=== PATIENT | female | born 1970 | race Caucasian/White ===

== ENCOUNTER 2019-02-01 10:10 | Emergency (ER) | payer BC ==
[~2019-02-01] VITALS: Ht 154.9 cm; Wt 72.6 kg
[2019-02-01 10:35] VITALS: BP 137/83
[2019-02-01] MEDS ORDERED: ZYRTEC10 M5 PO (10:40)
[2019-02-01] MEDS ORDERED: IBUPROFEN 600600 M1 PO (11:46)
[2019-02-01] MEDS ORDERED: ACETAMINOPHEN-1 EAC1 PO (11:46)
== END 2019-02-01 12:10 | disposition home or self-care (01) ==
LOC: ER 10:10
DX: S61.216A Laceration without foreign body of right little finger without damage to nail, initial encounter (principal); W25.XXXA Contact with sharp glass, initial encounter; Y93.89 Activity, other specified; Y92.89 Other specified places as the place of occurrence of the external cause; Y99.8 Other external cause status; Z88.8 Allergy status to other drugs, medicaments and biological substances